=== PATIENT | female | born 1955 | race African-American/Black ===

== ENCOUNTER 2020-04-06 14:38 | Inpatient (IN) | payer MEDICARE, MEDICAID ==
[~2020-04-06] VITALS: Ht 157.5 cm; Wt 55.3 kg
[~2020-04-06 14:38] MED LIST: ATOR-2 PO
[2020-04-06] MEDS ORDERED: DEXAMETHASONE 10 MG/ML VIAL IV ONE (15:15)
[2020-04-06] MEDS ORDERED: CEFTRIAXONE 1 G PREMIX 50 ML IV ONE (15:15)
[2020-04-06] MEDS ORDERED: SODIUM CHLORIDE 0.9% 1,000 ML IV ONE (15:15)
[2020-04-06] MEDS ORDERED: AZITHROMYCIN 500 MG in DEXT 5% WATER 250 ML IV ONE (15:15)
[2020-04-06] MEDS ORDERED: ONDANSETRON HCL 4MG/2ML INJ IV ONE (15:15)
[2020-04-06 15:36] LABS: BASOPHILS % 0.5 % (0.0-2.0); HEMATOCRIT. 38.9 % (36.0-48.0); HEMOGLOBIN. 12.9 g/dL (12.0-16.0); MEAN CORPUSCULAR HEMOGLOBIN 29.1 pg (28.0-32.0); MEAN CORPUSCULAR VOLUME 87.7 fL (81.0-99.0); MEAN PLATELET VOLUME 9.3 fl (7.4-10.4); MONOCYTES % 5.8 % (2.0-8.0); NEUTROPHILS % 85.7 % (40.0-76.0); PLATELET 159 x1000/uL (130-400); RED BLOOD CELL COUNT 4.43 mill/uL (4.2-5.4); RED CELL DISTRIBUTION WIDTH 14.3 % (11.6-14.6)
[2020-04-06 15:39] LABS: CHLORIDE 108 mEq/L (98-107)
[2020-04-06 15:44] LABS: D-DIMER 0.98 mg/L FEU (<0.50); PARTIAL THROMBOPLASTIN TIME 23.8 sec (23.4-31.0); PROTHROMBIN TIME 10.4 sec (9.6-11.0)
[2020-04-06 16:21] LABS: CLARITY URINE CLOUDY (CLEAR); COLOR URINE DARK YELLOW (YELLOW); KETONES URINE 1+ (NEGATIVE); LEUKOCYTE ESTERASE URINE TRACE (NEGATIVE); NITRITE URINE NEGATIVE (NEGATIVE); OCCULT BLOOD URINE TRACE (NEGATIVE); PROTEIN URINE 2+ (NEGATIVE); SPECIFIC GRAVITY URINE 1.025 (1.005-1.030)
[2020-04-06] MEDS: ASPIRIN 81MG TABLET PO ONE ×2 (17:06→17:12)
[2020-04-06] MEDS ORDERED: ONDANSETRON HCL 4MG/2ML INJ IV PRN (18:30)
[2020-04-06] MEDS ORDERED: CLONIDINE 0.1MG TABLET PO PRN (18:30)
[2020-04-06] MEDS ORDERED: GUAIFENESIN 200MG/10ML SUGAR FREE UDC PO PRN (18:30)
[2020-04-06] MEDS ORDERED: MAGNESIUM/ALUMINUM HYDROXIDE/SIMETHICONE 30ML UDC PO PRN (18:30)
[2020-04-06] MEDS ORDERED: DOCUSATE SODIUM 100MG CAPSULE PO PRN (18:30)
[2020-04-06] MEDS ORDERED: ACETAMINOPHEN 325MG TABLET PO PRN (18:30)
[2020-04-06] MEDS: ENOXAPARIN 30MG/0.3ML SYR SUBCUT SCH (22:30)
[2020-04-07 06:21] LABS: CHLORIDE 112 mEq/L (98-107)
[2020-04-07 06:22] LABS: BASOPHILS % 0.2 % (0.0-2.0); HEMATOCRIT. 36.5 % (36.0-48.0); HEMOGLOBIN. 12.4 g/dL (12.0-16.0); LYMPHOCYTES % 12.7 % (20.0-50.0); MEAN CORPUSCULAR HEMOGLOBIN 29.4 pg (28.0-32.0); MEAN CORPUSCULAR VOLUME 86.9 fL (81.0-99.0); MEAN PLATELET VOLUME 9.2 fl (7.4-10.4); NEUTROPHILS % 79.1 % (40.0-76.0); PLATELET 148 x1000/uL (130-400); RED CELL DISTRIBUTION WIDTH 14.3 % (11.6-14.6)
[2020-04-07 10:30] VITALS: BP 128/49
[2020-04-07 12:00] VITALS: BP 109/59
[2020-04-07] MEDS ORDERED: CLOP-31 PO (12:09)
[2020-04-07] MEDS ORDERED: POTA-9 PO (12:09)
[2020-04-07] MEDS ORDERED: LISI10TA5 PO (12:09)
[2020-04-07] MEDS ORDERED: ONDA4TAB5 PO (12:09)
[2020-04-07] MEDS ORDERED: CARV6.2548 PO (12:09)
[2020-04-07 12:11] VITALS: BP 128/49
[2020-04-07 16:00] VITALS: BP 117/59
[2020-04-07] MEDS ORDERED: CEFTRIAXONE 1 G PREMIX 50 ML IV SCH (17:00)
[2020-04-07] MEDS: CEFTRIAXONE 1,000 MG in DEXTROSE 5% WATER 50 ML IV SCH (17:45)
[2020-04-07] MEDS ORDERED: AZITHROMYCIN 500 MG in DEXT 5% WATER 250 ML IV SCH (18:00)
[2020-04-07] MEDS: AZITHROMYCIN 500 MG in DEXT 5% WATER 250 ML IV SCH (18:16)
[2020-04-07 20:00] VITALS: BP 111/63
[2020-04-07] MEDS: ENOXAPARIN 30MG/0.3ML SYR SUBCUT SCH (21:47)
[2020-04-08] VITALS: BP 106/51
[2020-04-08 04:00] VITALS: BP 111/56
[2020-04-08 08:00] VITALS: BP 118/60
[2020-04-08] MEDS: DEXAMETHASONE 4MG/ML 1ML VIAL IV SCH (11:38)
[2020-04-08 12:00] VITALS: BP 102/55
[2020-04-08 16:00] VITALS: BP 107/68
[2020-04-08] MEDS: CEFTRIAXONE 1,000 MG in DEXTROSE 5% WATER 50 ML IV SCH (16:02)
[2020-04-08] MEDS: AZITHROMYCIN 500 MG in DEXT 5% WATER 250 ML IV SCH (17:06)
[2020-04-08 20:00] VITALS: BP 104/64
[2020-04-08] MEDS: ENOXAPARIN 30MG/0.3ML SYR SUBCUT SCH (21:26)
[2020-04-09] VITALS: BP 111/55
[2020-04-09 04:00] VITALS: BP 124/57
[2020-04-09 08:00] VITALS: BP 114/52
[2020-04-09] MEDS: DEXAMETHASONE 4MG/ML 1ML VIAL IV SCH (09:08)
[2020-04-09 12:00] VITALS: BP 127/57
[2020-04-09 16:00] VITALS: BP 106/47
[2020-04-09] MEDS: CEFTRIAXONE 1,000 MG in DEXTROSE 5% WATER 50 ML IV SCH (16:59)
[2020-04-09] MEDS: AZITHROMYCIN 500 MG in DEXT 5% WATER 250 ML IV SCH (16:59)
[2020-04-09 20:00] VITALS: BP 123/59
[2020-04-09] MEDS: ENOXAPARIN 30MG/0.3ML SYR SUBCUT SCH (20:53)
[2020-04-10] VITALS: BP 120/61
[2020-04-10 04:00] VITALS: BP 126/46
[2020-04-10 08:00] VITALS: BP 121/76
[2020-04-10] MEDS ORDERED: AZITHROMYCIN 500 MG TABLET PO SCH (09:00)
[2020-04-10] MEDS: DEXAMETHASONE 4MG/ML 1ML VIAL IV SCH (09:57)
[2020-04-10 12:00] VITALS: BP 124/63
[2020-04-10 16:00] VITALS: BP 98/62
[2020-04-10] MEDS: CEFTRIAXONE 1,000 MG in DEXTROSE 5% WATER 50 ML IV SCH (17:51)
[2020-04-10 20:00] VITALS: BP 121/60
[2020-04-10] MEDS: ENOXAPARIN 30MG/0.3ML SYR SUBCUT SCH (22:04)
[2020-04-11] VITALS: BP 120/60
[2020-04-11 04:00] VITALS: BP 130/66
[2020-04-11] MEDS: DEXAMETHASONE 4MG/ML 1ML VIAL IV SCH (09:26)
[2020-04-11 14:58] VITALS: BP 121/70
== END 2020-04-11 17:10 | disposition home health service (06) | DRG 177 ==
LOC: ER 14:38 → MICUSO 18:11 → 7EST 04-07 09:01
PROVIDERS: ADMIT Hospitalist; ATTEND Hospitalist
DX: U07.1 COVID-19 (principal); J96.01 Acute respiratory failure with hypoxia; J12.82 Pneumonia due to coronavirus disease 2019; E44.0 Moderate protein-calorie malnutrition; N39.0 Urinary tract infection, site not specified; E78.00 Pure hypercholesterolemia, unspecified; R74.01 Elevation of levels of liver transaminase levels; E78.5 Hyperlipidemia, unspecified; I10 Essential (primary) hypertension; I25.10 Atherosclerotic heart disease of native coronary artery without angina pectoris; Z85.3 Personal history of malignant neoplasm of breast; Z86.73 Personal history of transient ischemic attack (TIA), and cerebral infarction without residual deficits; Z90.11 Acquired absence of right breast and nipple; Z92.21 Personal history of antineoplastic chemotherapy; Z92.3 Personal history of irradiation; Z68.22 Body mass index [BMI] 22.0-22.9, adult
CPT/HCPCS: 36415; 71045; 80053; 81003; 82728; 83605; 83880; 84145; 84484; 85025; 85379; 85384; 86140; 87635; 93005; 93970; 99291; J0456; J0696; J1100; J1650; J2405; J7030; J7040; J7060

== ENCOUNTER 2025-02-13 22:30 | Inpatient (IN) | payer MEDICARE, MEDICAID ==
[~2025-02-13] VITALS: Ht 157.5 cm; Wt 59.0 kg
[2025-02-13 22:30] VITALS: BP 126/63; PULSE 61; RESP 20; TEMP 36.3624
[~2025-02-13 22:30] MED LIST changes: +CARV6.2548 PO; +CHOL400D7 PO; +CLOP-31 PO; +EMPA10TA PO; +LISI10TA26 PO; +LORA10TA7 PO; +METO-396 MT; +MIDO2.5T3 MT; +ONDA4TAB5 PO; +POTA-203 PO; +SPIR25TA6 PO
[2025-02-13] MEDS ORDERED: MIDODRINE HCL 5MG TABLET PO NR (23:39)
[2025-02-13] MEDS ORDERED: IPRATROPIUM/ALBUTEROL 0.5-3(2.5)MG/3ML NEB HHN PRN (23:45)
[2025-02-14] VITALS: BP 126/63; PULSE 63; RESP 18; TEMP 36.3; O2SAT 99
[2025-02-14] MEDS ORDERED: ONDANSETRON HCL 4MG/2ML INJ IV PRN
[2025-02-14] MEDS ORDERED: MAGNESIUM/ALUMINUM HYDROXIDE/SIMETHICONE 30ML UDC PO PRN
[2025-02-14] MEDS ORDERED: CLONIDINE 0.1MG TABLET PO PRN
[2025-02-14] MEDS ORDERED: NALOXONE HCL 1MG/ML 2ML VIAL IV PRN
[2025-02-14] MEDS ORDERED: GUAIFENESIN 200MG/10ML SUGAR FREE UDC PO PRN
[2025-02-14] MEDS: MIDODRINE HCL 5MG TABLET PO SCH (06:44)
[2025-02-14 08:00] VITALS: BP 127/57; PULSE 63; RESP 18; TEMP 36.1; O2SAT 100
[2025-02-14 08:03] LABS: CREATININE 0.9 mg/dL (0.6-1.0); UREA NITROGEN BLOOD 13 mg/dL (9-23)
[2025-02-14 08:05] LABS: ASPARTATE AMINOTRANSFERASE 28 IU/L (<34); BILIRUBIN TOTAL 0.6 mg/dL (0.1-1.0); PROTEIN TOTAL 5.7 g/dL (6.0-8.3)
[2025-02-14] MEDS ORDERED: EMPAGLIFLOZIN 25MG TABLET PO SCH (09:00)
[2025-02-14] MEDS: PANTOPRAZOLE SODIUM 40 MG/VIAL IV SCH (09:06)
[2025-02-14] MEDS: POLYETHYLENE GLYCOL 3350 (17GM) 1 DOSE PACK PO SCH (09:12)
[2025-02-14 09:20] LABS: BASOPHILS % 0.6 % (0.0-2.0); EOSINOPHILS % 1.4 % (0.0-5.0); HEMATOCRIT. 27.4 % (36.0-48.0); HEMOGLOBIN. 8.9 g/dL (12.0-16.0); LYMPHOCYTES % 24.4 % (20.0-50.0); MEAN PLATELET VOLUME 9.1 fl (7.4-10.4); MONOCYTES % 10.0 % (2.0-8.0); NEUTROPHILS % 63.6 % (40.0-76.0); PLATELET 192 x1000/uL (130-400); RED BLOOD CELL COUNT 3.11 mill/uL (4.2-5.4); RED CELL DISTRIBUTION WIDTH 14.8 % (11.6-14.6)
[2025-02-14] MEDS: ACETAMINOPHEN 325MG TABLET PO PRN (11:01)
[2025-02-14] MEDS: ENOXAPARIN 40MG/0.4ML SYR SUBCUT SCH (11:02)
[2025-02-14 12:00] VITALS: BP 124/55; PULSE 63; RESP 18; TEMP 36.6; O2SAT 97
[2025-02-14 16:00] VITALS: BP 117/65; PULSE 80; RESP 20; TEMP 36.8; O2SAT 100
[2025-02-14 20:00] VITALS: BP 116/45; PULSE 62; RESP 18; TEMP 36.7; O2SAT 99
[2025-02-14] MEDS: ATORVASTATIN CALCIUM 40MG TABLET PO SCH (21:08)
[2025-02-15] MEDS: DOCUSATE SODIUM 100MG CAPSULE PO PRN (02:44)
[2025-02-15 08:00] VITALS: BP 106/59; PULSE 61; RESP 18; TEMP 37.1; O2SAT 98
[2025-02-15] MEDS: HYDROCODONE/ACETAMINOPHEN 7.5/325MG TABLET PO PRN (09:56)
[2025-02-15 20:00] VITALS: PULSE 89; RESP 18; TEMP 36.4; O2SAT 97
[2025-02-16 08:00] VITALS: BP 113/47; PULSE 67; RESP 17; TEMP 36.4; O2SAT 95
[2025-02-16] MEDS: BISACODYL 5MG TABLET PO PRN (14:38)
[2025-02-16 20:00] VITALS: BP 116/57; PULSE 68; RESP 20; TEMP 36.4; O2SAT 99
[2025-02-17 08:00] VITALS: BP 118/57; PULSE 66; RESP 20; TEMP 36.2; O2SAT 99
[2025-02-17] MEDS ORDERED: IPRATROPIUM/ALBUTEROL 0.5-3(2.5)MG/3ML NEB HHN PRN (10:15)
[2025-02-17 20:00] VITALS: BP 110/55; PULSE 60; RESP 18; TEMP 36.4; O2SAT 98
[2025-02-18 08:00] VITALS: BP 115/42; PULSE 57; RESP 16; TEMP 37.2; O2SAT 98
[2025-02-18 20:00] VITALS: BP 118/58; PULSE 59; RESP 16; TEMP 36.3; O2SAT 100
[2025-02-19 08:00] VITALS: BP 122/46; PULSE 63; RESP 20; TEMP 36.3; O2SAT 100
[2025-02-19 20:00] VITALS: BP 111/50; PULSE 61; RESP 18; TEMP 36.5; O2SAT 100
[2025-02-20 08:00] VITALS: BP 141/46; PULSE 54; RESP 18; TEMP 36.1; O2SAT 100
[2025-02-20 20:00] VITALS: BP 121/58; PULSE 70; RESP 18; TEMP 36.7; O2SAT 99
[2025-02-21 08:00] VITALS: BP 121/50; PULSE 67; RESP 18; TEMP 36.6; O2SAT 100
[2025-02-21 15:43] LABS: PLATELET 314 x1000/uL (130-400); RED BLOOD CELL COUNT 3.49 mill/uL (4.2-5.4); RED CELL DISTRIBUTION WIDTH 16.6 % (11.6-14.6)
[2025-02-21 16:16] LABS: CREATININE 0.8 mg/dL (0.6-1.0); UREA NITROGEN BLOOD 15 mg/dL (9-23)
[2025-02-21 20:00] VITALS: BP 119/46; PULSE 60; RESP 18; TEMP 36.5; O2SAT 100
[2025-02-22 08:00] VITALS: BP 123/51; PULSE 57; RESP 18; TEMP 36.3; O2SAT 98
[2025-02-22 20:00] VITALS: BP 112/44; PULSE 57; RESP 18; TEMP 36.3; O2SAT 100
[2025-02-23 08:00] VITALS: BP 115/59; PULSE 62; RESP 16; TEMP 36.6; O2SAT 98
[2025-02-23 20:00] VITALS: BP 120/61; PULSE 66; RESP 18; TEMP 36.2; O2SAT 99
[2025-02-24 08:00] VITALS: BP 117/62; PULSE 62; RESP 18; TEMP 36.5; O2SAT 100
[2025-02-24 14:34] VITALS: BP 120/67; PULSE 62; RESP 18; TEMP 97.7
== END 2025-02-24 16:20 | disposition home health service (06) | DRG 57 ==
PROVIDERS: ADMIT Psychiatry & Neurology Neurology; ATTEND Hospitalist
DX: I69.351 Hemiplegia and hemiparesis following cerebral infarction affecting right dominant side (principal); N17.9 Acute kidney failure, unspecified; I11.0 Hypertensive heart disease with heart failure; D63.8 Anemia in other chronic diseases classified elsewhere; I69.322 Dysarthria following cerebral infarction; R13.10 Dysphagia, unspecified; G89.18 Other acute postprocedural pain; R63.6 Underweight; E78.5 Hyperlipidemia, unspecified; I95.89 Other hypotension; K62.89 Other specified diseases of anus and rectum; N81.4 Uterovaginal prolapse, unspecified; H54.61 Unqualified visual loss, right eye, normal vision left eye; K57.30 Diverticulosis of large intestine without perforation or abscess without bleeding; R00.1 Bradycardia, unspecified; M75.01 Adhesive capsulitis of right shoulder; R53.1 Weakness; Z85.3 Personal history of malignant neoplasm of breast; Z88.0 Allergy status to penicillin; Z90.11 Acquired absence of right breast and nipple; Z91.81 History of falling; Z79.899 Other long term (current) drug therapy; Z88.8 Allergy status to other drugs, medicaments and biological substances; I69.391 Dysphagia following cerebral infarction
CPT/HCPCS: 36415; 80048; 80053; 85025; 85027; 92523; 92610; 97110; 97112; 97116; 97150; 97162; 97166; 97530; 97535; A4606; J1650; J2470